=== PATIENT | female | born 1950 | race Hispanic/Latino ===

== ENCOUNTER → 2018-11-04 | Day surgery (SDC) | payer MEDICARE ==
[~2018-11-04] MED LIST: ACETAMINOPHEN/CODEINE 300MG - 30MG TAB ONE; AMLODIPINE-ATO1 EAC6 PO; ATORVASTATIN CA20 MG PO; CEFAZOLIN SOD 1 GM/NS 50ML 50 ML IV ONE; DESFLURANE 240 ML BTL INH ONE; DEXAMETHASONE SOD PHOS INJ 4 MG/ML VIAL ONE; FENTANYL CITRATE/PF 100MCG/2 ML INJ ONE; GLIPIZIDE5 MG PO; HYDROMORPHONE 2MG/ML 2 MG/ML ML ONE; KETOROLAC TROMETHAMINE 30 MG/ML VIAL ONE; LANTUS 3ML100 UNITS/ SC; LIDOCAINE HCL 2% LOCAL INJ 5 ML SDV VIAL INJ ONE; METFORMIN HCL500 MG PO; METOLAZONE5 MG PO; MIDAZOLAM HCL 2 MG/2 ML VIAL ONE; PIOGLITAZONE HC45 MG PO; PROPOFOL IV EMULSION 10 MG/ML 20 ML VIAL ONE
--- OUTSIDE RECORDS SUMMARY | 2018-11-04 05:16 | XMS REPORT ---
Author Author [facility] Address Unknown Phone Unavailable Care Team Providers Care Costume Specialist Name Role Phone Unavailable Unavailable Payers Payer Name Policy Type Policy Number Effective Date Expiration Date Problems This patient has no known problems. Allergies, Adverse Reactions, Alerts Allergy Name Allergy Type Status Severity Reaction(s) Onset Date Inactive Date Treating Clinician Comments IODINE TOPICAL DA Active MO 2018-10-23 00:00:00 IVP DYE DA Active MO 2018-10-23 00:00:00 iodine DA Active U 2008-11-20 00:00:00 IODINE TOPICAL DA Active U 2008-09-25 00:00:00 IVP DYE DA Active U 2008-09-25 00:00:00 Medications This patient has no known medications. Results Test Description Test Time Test Comments Text Results Atomic Results Result Comments - XR WRIST 3 + V LT 2018-10-23 23:48:00 FAX: Danilo Appiah MD [phone] [place]: [address] St: REG Name: FRANCOIS RODRIGEZERANZA [facility] FSED : 1950 Age/S: 68/F [address] Unit #: [id number] Loc: [facility] [address] Phys: Danilo Moreno MD [place], [place] [address] Acct: [id number] Dis Date: Status: REG ER PHONE #: Exam Date: 10/23/2018 2315 FAX #: Reason: fall EXAMS: CPT CODE: [id number] XR WRIST 3 + V LT [address]69 EXAM: Left wrist, 3 views Location code:J9 HISTORY: fall COMPARISON: None available FINDINGS: Transverse distal radius and ulnar styloid fractures. No subluxation. Mild wrist soft tissue swelling.. IMPRESSION:Distal radius and ulnar styloid fractures. at 3788 Reported and signed by: Chano Hook M.D. CC: Danilo Moreno MD Technologist: Almas العلي Trnsdrd Date/Time/By: 10/23/2018 (1572) : By: [email or web address] Orig Print D/T: S: 10/23/2018 (2751) PAGE 1 Signed Report - XR KNEE 3 V BI 2018-10-23 23:45:00 FAX: Y Danilo Moreno MD [phone] [place]: [address] St: REG Name: HARRIETT RODRIGEZ [facility] FSED : 1950 Age/S: 68/F [address] Unit #: [id number] Loc: [facility] [address] Phys: Danilo Moreno MD [place], [place] [address] Acct: [id number] Dis Date: Status: REG ER PHONE #: Exam Date: 10/23/2018 2339 FAX #: Reason: fall EXAMS: CPT CODE: [id number] XR KNEE 3 [place] [address] Exam: Bilateral knees 3 views AP, lateral and oblique Location: F6 HISTORY: fall FINDINGS: Osteoarthritic changes are pre sent with joint space narrowing, eburnation and osteophyte formation. The bony cortices are intact. No joint effusion is seen. The soft tissues are normal. Impression: Osteoarthritis. at 2345 Reported and signed by: Heron Alvarez M.D. CC: Danilo Moreno MD Technologist: Almas Leahy Date/Time/By: 10/23/2018 (4037) : By: Nimo Orig Print D/T: S: 10/23/2018 (0289) PAGE 1 Signed Report - XR ANKLE 3 + V LT 2018-10-23 23:45:00 FAX: Danilo Appiah MD [phone] [place]: [address] St: REG Name: ELIAHARRIETT [facility] FSED : 1950 Age/S: 68/F [address] Unit #: [id number] Loc: [facility] [address] Phys: Danilo Moreno MD [place], [place] [address] Acct: [id number] Dis Date: Status: REG ER PHONE #: Exam Date: 10/23/2018 2325 FAX #: Reason: fall EXAMS: CPT CODE: [id number] XR ANKLE 3 + V LT 77624 Exam: Left ankle 3 views AP, lateral and oblique Location: F6 History: fall Findings: Mild degenerative changes are present. A small plantar calcaneal spur is present. No other bone or joint abnormality is seen. The bony cortices are intact. No joint effusion is seen. The soft tissues are normal. Impression: Osteoarthritis. at 8853 Reported and signed by: Heron Alvarez M.D. CC: Danilo Moreno MD Technologist: Almas Leahy Date/Time/By: 10/23/2018 (6527) : By: Nimo Orig Print D/T: S: 10/23/2018 (4294) PAGE 1 Signed Report
--- NOTE | 2018-11-04 07:05 | NUR ---
SPIRITUAL CARE - Pre-Surgery Assessment: Pt in bed. Pt's sister at bedside. Pt reported supportive attention from family and friends. Intervention: I provided pastoral presence, hospitality, and sympathetic listening. I acquainted pt with availability of letter of credit clerk while hospitalized. Outcome: Pt expressed appreciation for visit. No need for follow up indicated at this time. [facility] Spiritual Care Department O: [phone] Pager: [phone] ([phone] number calling from)
[2018-11-04 09:39] VITALS: BP 130/65
--- NOTE | 2018-11-04 11:38 | Operative Report ---
DATE OF PROCEDURE: 11/04/2018 SURGEON: Wilder Martinez MD MEDIA SENIOR RECRUITER: aKlyan Puckett PA-C. PREOPERATIVE DIAGNOSIS: Comminuted left distal radius fracture. POSTOPERATIVE DIAGNOSIS: Comminuted left distal radius fracture. PROCEDURE: Closed reduction and percutaneous pin fixation of left distal radius. INDICATIONS: The patient is a 68-year-old lady, who has a left distal radius fracture with some displacement, intra-articular extension and evidence of osteoporosis. The findings and options have been discussed with the patient. My concern is about her osteoporosis with internal fixation have been expressed. We plan on a closed reduction with percutaneous pin fixation. The risks and benefits were discussed. It is not likely that we will obtain an anatomic reduction. She states she understands and wishes to proceed. PROCEDURE IN DETAIL: The patient was brought to the operating room and placed under general anesthetic. Her left upper extremity was prepped and draped in a sterile manner. A preoperative time-out was performed. A C-arm image intensifier was used to assist in performing a closed reduction of the distal radius. The fracture fragments were indeed quite comminuted. Improvement in the distal radial inclination and length were established. The fixation was obtained with two 0.062 K-wires. These were placed from the radial styloid into the radial shaft. Her bone quality was poor. Final x-rays confirmed satisfactory reduction of the fracture and positioning of the pins. The pins were cut short and capped. A sterile bandage and a sugar-tong splint were applied. She was extubated and transported to the recovery room in stable condition. Blood loss was less than 10 mL and all needle and sponge counts were correct. Wilder Martinez MD DR/RUIBA /[id number]
== END | disposition home or self-care (01) ==
LOC: OR 05:13
PROVIDERS: ATTEND Specialist
DX: S52.572A Other intraarticular fracture of lower end of left radius, initial encounter for closed fracture (principal); M80.032A Age-related osteoporosis with current pathological fracture, left forearm, initial encounter for fracture; E78.00 Pure hypercholesterolemia, unspecified; I10 Essential (primary) hypertension; E11.9 Type 2 diabetes mellitus without complications; R00.0 Tachycardia, unspecified; F41.9 Anxiety disorder, unspecified; W07.XXXA Fall from chair, initial encounter; Y92.009 Unspecified place in unspecified non-institutional (private) residence as the place of occurrence of the external cause; W18.30XA Fall on same level, unspecified, initial encounter; Y92.238 Other place in hospital as the place of occurrence of the external cause; Z01.810 Encounter for preprocedural cardiovascular examination; Z79.82 Long term (current) use of aspirin; Z79.84 Long term (current) use of oral hypoglycemic drugs; Z68.34 Body mass index [BMI] 34.0-34.9, adult
CPT/HCPCS: 36415; 76000; 82948; 93005; C1713; J0690; J1100; J1885; J2001; J2250